=== PATIENT | male | born 1960 | race Caucasian/White ===

== ENCOUNTER 2020-04-18 12:32 | Inpatient (IN) | payer MEDICAID, SELFPAY ==
[~2020-04-18] VITALS: Ht 165.1 cm; Wt 65.3 kg
[2020-04-18 12:32] VITALS: BP 158/92
--- NOTE | 2020-04-18 12:32 | NUR ---
Bishop MCDUFFIE accompanied by Slim CASTANEDA, transferred to bed 10. RN evaluating patient at bedside.
--- NOTE | 2020-04-18 12:32 | NUR ---
(1225) RECEIVED FROM [facility] ON CPAP [id number] PLACED A BIPAP VISION (ALK 1124) PLUGGED INTO RED OUTLET TOLERATING WELL WITHOUT ADVERSE REACTIONS TO A MEDIUM FACIAL MASK SECURED WITH HEAD GEAR LOC AWAKE AND ALERT VERBALLY RESPONSIVE GOOD CHEST RISE AND AERATION THROUGHOUT BILATERAL LUNG LONG AIRWAY PATENT DALE/RN NOTIFIED OF BIPAP SETTINGS
[2020-04-18 12:34] VITALS: BP 136/104
--- NOTE | 2020-04-18 12:37 | NUR ---
Dr. Bobo is evaluating the patient at bedside.
--- NOTE | 2020-04-18 12:40 | NUR ---
PT BIBA FROM HOME FOR HYPOXIA AT 57% ON RA. PT PRESENTS WITH C-PAP WITH HIGHEST PAUSE OX 77%. PER EMS, PT WAS EXPOSURED TO POSITIVE COVID RECENTLY. PT CANNOT COMPLETE FULL SENTENCE AT THIS MOMENT AND IS AFEBRILE WITH NO COUGH UPON ARRIVAL. LUNGS ARE DIMINISHED ON GARY BASES. HEART RATE IS REGULAR WITH SINUS TACHYCARDIA. PMH: DENIES
--- NOTE | 2020-04-18 12:48 | NUR ---
RT IS AT BEDSIDE FOR ABG.
--- NOTE | 2020-04-18 12:50 | NUR ---
ABG OBTAINED RIGHT BRACHIAL PRESSURE APPLIED NO EVIDENCE OF TRAUMA
--- NOTE | 2020-04-18 12:58 | NUR ---
REVIEWED ABG SAMPLE REPORT NO NEW ORDERS
--- NOTE | 2020-04-18 13:02 | NUR ---
XRAY IS AT BEDSIDE.
[2020-04-18 13:47] LABS: BASOPHILS % (AUTO) 0.2 % (0.0-2.0); EOSINOPHILS % (AUTO) 0.2 % (0.0-4.0); HEMATOCRIT 36.3 % (36-52); HEMOGLOBIN 12.5 g/dL (12.0-18.0); LYMPHOCYTES # (AUTO) 0.4 K/uL (2.0-11.5); LYMPHOCYTES % (AUTO) 3.3 % (20.5-51.1); MEAN CORPUSCULAR HEMOGLOBIN 30 pg (27-31); MEAN CORPUSCULAR HGB CONC 34 g/dL (33-37); MEAN CORPUSCULAR VOLUME 87.7 fL (80-94); MONOCYTES # (AUTO) 0.6 K/uL (0.8-1.0); MONOCYTES % (AUTO) 5.7 % (1.7-9.3); NEUTROPHILS % (AUTO) 90.6 % (42.2-75.2); PLATELET COUNT (AUTO) 263 K/uL (140-450); RED BLOOD CELL COUNT(AUTO) 4.13 MIL/uL (4.20-6.10); RED CELL DISTRIBUTION WIDTH 13.6 % (11.6-13.7); WHITE BLOOD COUNT (AUTO) 11.1 K/uL (4.8-10.8)
[2020-04-18] MEDS ORDERED: AZITHROMYCIN 1,000 MG in DEXTROSE 5% 500 ML IV ONE (14:00)
[2020-04-18] MEDS ORDERED: DEXAMETHASONE 10 MG/ML VIAL IVP ONE (14:00)
[2020-04-18] MEDS ORDERED: ZINC SULF 220 MG CAP PO ONE (14:00)
[2020-04-18] MEDS ORDERED: AZTREONAM 1,000 MG VIAL ONE (14:01)
[2020-04-18] MEDS ORDERED: cefTRIAXone 1,000 MG VIAL ONE (14:04)
[2020-04-18] MEDS ORDERED: AZITHROMYCIN 500 MG INJ VIAL IV ONE (15:00)
[2020-04-18 15:05] LABS: ALBUMIN 1.6 g/dL (3.4-5.0); ANION GAP 21.4 (8-16); CARBON DIOXIDE 16.9 mmol/L (21-32); POTASSIUM 4.3 mmol/L (3.5-5.1); TOTAL BILIRUBIN 0.4 mg/dL (0.0-1.0)
--- NOTE | 2020-04-18 15:13 | NUR ---
SPOKE TO PT'S FRIEND KANDI AT PHONE NUMBER [phone] AND SHE STATES CAN PUT HER NAME AND PHONE NUMBER ON FILE EMERGENCY CONTACT.
[2020-04-18 15:24] LABS: FIBRINOGEN 500 mg/dL (200-400); PROTHROMBIN TIME 10.1 secs (10.8-13.4)
[2020-04-18] MEDS ORDERED: LORazepam 2 MG/ML VIAL IM/IVP PRN (15:25)
[2020-04-18] MEDS ORDERED: ACETAMINOPHEN 325 MG TAB PO PRN (15:25)
[2020-04-18] MEDS ORDERED: HYDROcodone/APAP 5/325 MG 1 TAB TAB PO PRN (15:25)
[2020-04-18] MEDS ORDERED: DOCUSATE SODIUM 100 MG GELCAP PO PRN (15:25)
[2020-04-18] MEDS ORDERED: ALBUTEROL HFA MDI 90 MCG/ACTUATION 8 GM INH PRN (15:25)
[2020-04-18] MEDS ORDERED: ZOLPIDEM 5 MG TAB PO PRN (15:25)
[2020-04-18] MEDS ORDERED: ONDANSETRON 4 MG/2 ML VIAL IVP PRN (15:25)
[2020-04-18 15:46] LABS: D-DIMER > 5000 ng/ml (0-400)
[2020-04-18] MEDS ORDERED: HEPARIN PER PHARMACY MC STA (15:49)
[2020-04-18] MEDS ORDERED: hePARIN / DEXT 5% PREMIX 250 ML IV ONE ×2 (15:50→16:55)
[2020-04-18 15:56] LABS: CHOL/HDL RATIO 4.4 (1-4.5); FREE T4 (FREE THYROXINE) 1.54 ng/dL (0.76-1.46); MAGNESIUM 2.2 mg/dL (1.8-2.4); PHOSPHORUS 4.2 mg/dL (2.5-4.9); THYROID STIMULATING HORMONE 2.18 uIU/mL (0.34-3.74)
--- NOTE | 2020-04-18 16:02 | NUR ---
NOVEL, CLEVE, FLU, AND RSV SWABS COLLECTED AND SENT TO THE LAB.
[2020-04-18] MEDS: NACL 0.9% 1,000 ML IV SCH (16:10)
[2020-04-18 16:40] LABS: RSV NEGATIVE (NEGATIVE)
[2020-04-18 16:44] LABS: C-REACTIVE PROTEIN QUANT 28.6 mg/dL (0.0-0.9)
[2020-04-18 16:57] LABS: LACTATE DEHYDROGENASE 235 U/L (85-227)
--- NOTE | 2020-04-18 17:00 | NUR ---
PT HAD BOWEL MOVEMENT AT BEDSIDE COMMODE.
[2020-04-18] MEDS ORDERED: DEXTROSE 50% 50 ML SYR IVP PRN (17:20)
--- NOTE | 2020-04-18 17:22 | NUR ---
PT'S PT IS 10.1. HEPARIN INITIAL BOLUS 4000 UNITS WAS GIVEN. INITIAL HEPARIN DRIP WAS CALCULATED 18 UNITS X 65KG/JE=4576 UNITS/HR. HEPARIN IS RUNNING AT 11ML/HR AT THIS TIME.
[2020-04-18] MEDS ORDERED: NACL 0.9% 1,000 ML IV SCH (17:40)
[2020-04-18] MEDS ORDERED: INSULIN REGULAR, HUMAN 100 UNIT in NACL 0.9% 100 ML IV SCH ×2 (17:40)
[2020-04-18] MEDS ORDERED: BLOOD GLUCOSE MONITORING 1 DEV DEV FS SCH ×2 (17:40→20:00)
[2020-04-18] MEDS ORDERED: DEXT 5% / NACL 0.45% 1,000 ML IV SCH (17:40)
--- NOTE | 2020-04-18 18:04 | NUR ---
Lactic Acid 2.3-- Critical value received from lab.
[2020-04-18 18:08] LABS: APPEARANCE,URINE CLEAR (CLEAR); BILIRUBIN,URINE NEGATIVE (NEGATIVE); BLOOD, URINE 2+ (NEGATIVE); COLOR,URINE YELLOW (YELLOW); LEUKOCYTE ESTERASE ,URINE NEGATIVE (NEGATIVE); NITRITE, URINE NEGATIVE (NEGATIVE); UGLUCOSE 2+ (NEGATIVE)
[2020-04-18 18:40] LABS: BARBITURATE, URINE NEGATIVE ng/ml (NEG <=200); BENZODIAZEPINE, URINE NEGATIVE ng/mL (NEG <=200); CANNABINOID, URINE NEGATIVE ng/mL (NEG <=50); COCAINE, URINE NEGATIVE ng/mL (NEG <=300); OPIATE, URINE NEGATIVE ng/mL (NEG <=2000); PHENCYCLIDINE SCREEN,URINE NEGATIVE ng/mL (NEG <=25)
[2020-04-18 18:41] LABS: WBC,URINE 0-5 /HPF (0-5)
--- NOTE | 2020-04-18 19:30 | NUR ---
RECEIVED REPORT FROM DALE GAGE FOR CONTINUITY OF CARE.
--- NOTE | 2020-04-18 20:00 | NUR ---
PT LAYING IN BED ON BiPAP AT 55% FIO2. O2 SAT AT 94% BREATHING EVEN AND MIDLY LABORED. WHEEZES TO BILAT BASES A&P. PT ACCIDENTLY PULLED HIS IV SITE. RE-ESTABLISGHED AND IV TO R FOREARM 20G SITE WAS PATENT FLUSHED WITH 10 ML OF NS. NO INFLITRATION, SWELLING OR DISCOMFORT NOTED. RE-CONNECTED HEPARIN ORDERED WITH 1100 UNITS/HR. CHANGED PT AND PLACED IN A CLEAN GOWN & CHANGED BED SHEETS. ADJUSTED HOB TO COMFORTABLE POSITION AND REPOSITION PT. BED WAS LOCKED AND PLACED IN LOWEST POSITION. NO C/O PAIN OR DISCOMFORT AT THIS TIME. ON CARDIAC MONITORING, BP MONITORING AND PULSE OXIMETRY.
[2020-04-18] MEDS: ZINC SULF 220 MG CAP PO SCH (20:56)
[2020-04-18 21:00] VITALS: BP 146/81
--- NOTE | 2020-04-18 21:15 | NUR ---
RECEIVED PHONE CALL FROM [facility] REGARDING PT'S ORDERS FOR CLARIFICATION. PAGED DR. PURVIS FOR CLARIFICATION AND GAVE NEW ORDERS FOR ACCUCHECK AND TO CALL BACK WITH RESULTS. DR. PURVIS GAVE ORDERS TO D/C NS AT 200 ML/HR AND TO CONTINUE CURRENT RATE AT 100 ML/HR. ORDERED ABG TO BE DONE. WILL FOLLOW UP WITH ORDERS.
[2020-04-18] MEDS: INSULIN LISPRO SLIDING SCALE 100 UNITS/ML VIAL SUBQ PRN (21:30)
--- NOTE | 2020-04-18 21:30 | NUR ---
ACCUCHECK AT THIS TIME 420. GAVE 12 UNITS OF LISPRO AND NOTIFIED DR. PURVIS. GAVE ORDERS TO D/C INSULIN DRIP AND TO CONTINUE ACCUCHECKS AND NOTIFY HER OF ACCUCHECK RESULT POST INSULIN ADMINISTRATION.
--- NOTE | 2020-04-18 22:40 | NUR ---
PT LAYING IN BED ON BiPAP AT 55% FIO2. BREATHING EVEN AND REGULAR. BED WAS LOCKED AND PLACED IN LOWEST POSITION. NO C/O PAIN OR DISCOMFORT AT THIS TIME. ON CARDIAC MONITORING, BP MONITORING AND PULSE OXIMETRY. EMPTIED PT'S URINAL WITH 200 ML OF DARK YELLOW URINE.
[2020-04-18] MEDS: BLOOD GLUCOSE MONITORING 1 DEV DEV FS SCH (23:00)
--- NOTE | 2020-04-18 23:17 | NUR ---
NOTIFIED DR. PURVIS OF [place] [id number] AND [facility] RESULTS. GAVE NEW ORDERS FOR VQ SCAN AND TO CONTINUE SLIDDING SCALE COVERAGE. Addendum: 04/19/20 at 0612 by JAYCEE *NO NEW ORDERS FOR ADDITIONAL INSULIN GIVEN.
[2020-04-18 23:43] LABS: PROTHROMBIN TIME 10.1 secs (10.8-13.4)
--- NOTE | 2020-04-19 00:05 | NUR ---
SPOKE WITH [facility]IOLOGY [facility] AND STATED THAT THEY CANNOT DO VQ SCAN HERE AND REQUIERES OUTSOURCE FROM A THIRD COMPANY. NOTIFIED DR. NARVAEZ NO NEW ORDERS AT THIS TIME.
--- NOTE | 2020-04-19 00:10 | NUR ---
DR. NARVAEZ GAVE TO FOR TROPONIN TO BE DRAWN AT 0500. ORDER PLACED. WILL FOLLOW UP WITH LAB.
[2020-04-19] MEDS ORDERED: hePARIN / DEXT 5% PREMIX 250 ML IV SCH (00:30)
[2020-04-19] MEDS ORDERED: HEPARIN PER PHARMACY MC PRN (00:30)
--- NOTE | 2020-04-19 00:38 | NUR ---
PT LAYING IN BED ON BiPAP AT 55% FIO2. BREATHING EVEN AND REGULAR. BED WAS LOCKED AND PLACED IN LOWEST POSITION. NO C/O PAIN OR DISCOMFORT AT THIS TIME. ON CARDIAC MONITORING, BP MONITORING AND PULSE OXIMETRY.
[2020-04-19 00:50] VITALS: BP 131/76
[2020-04-19] MEDS: NACL 0.9% 1,000 ML IV SCH ×3 (01:25→19:06)
--- NOTE | 2020-04-19 03:00 | NUR ---
PER RT INCREASED FIO2 % TO 60 UNABLE TO TITRATE TO 55% PER RT
--- NOTE | 2020-04-19 04:25 | NUR ---
PT LAYING IN BED ON BiPAP AT 60% FIO2. BREATHING EVEN AND REGULAR. BED WAS LOCKED AND PLACED IN LOWEST POSITION. NO C/O PAIN OR DISCOMFORT AT THIS TIME. ON CARDIAC MONITORING, BP MONITORING AND PULSE OXIMETRY.
--- NOTE | 2020-04-19 04:43 | NUR ---
LAB AT BEDSIDE FOR BLOOD DRAW.
--- NOTE | 2020-04-19 05:00 | NUR ---
PT WAS ASSISTED TO USE THE BATHROOM VIA BEDSIDE BEDPAN. TOLERATED WELL.
[2020-04-19 05:05] VITALS: BP 142/78
[2020-04-19 05:45] LABS: HEMOGLOBIN 11.4 g/dL (12.0-18.0); LYMPHOCYTES # (AUTO) 0.5 K/uL (2.0-11.5); MEAN CORPUSCULAR HEMOGLOBIN 30 pg (27-31); MEAN CORPUSCULAR HGB CONC 35 g/dL (33-37); MEAN CORPUSCULAR VOLUME 87.4 fL (80-94); MONOCYTES # (AUTO) 0.6 K/uL (0.8-1.0); MONOCYTES % (AUTO) 7.6 % (1.7-9.3); NEUTROPHILS # (AUTO) 6.6 K/uL (1.8-7.7); NEUTROPHILS % (AUTO) 86.4 % (42.2-75.2); PLATELET COUNT (AUTO) 236 K/uL (140-450); RED BLOOD CELL COUNT(AUTO) 3.78 MIL/uL (4.20-6.10); RED CELL DISTRIBUTION WIDTH 13.7 % (11.6-13.7); WHITE BLOOD COUNT (AUTO) 7.6 K/uL (4.8-10.8)
--- NOTE | 2020-04-19 07:07 | NUR ---
PT LAYING IN BED ON BiPAP AT 65% FIO2. BREATHING EVEN AND REGULAR. BED WAS LOCKED AND PLACED IN LOWEST POSITION. NO C/O PAIN OR DISCOMFORT AT THIS TIME. ON CARDIAC MONITORING, BP MONITORING AND PULSE OXIMETRY.
--- NOTE | 2020-04-19 07:26 | NUR ---
Received report from Gypsy Carter, transfer of care at this time.
--- NOTE | 2020-04-19 07:30 | NUR ---
GAVE REPORT TO KAYLIE GAGE FOR CONTINUITY OF CARE.
[2020-04-19 07:33] LABS: ALBUMIN 1.4 g/dL (3.4-5.0); ANION GAP 15.1 (8-16); CARBON DIOXIDE 19.2 mmol/L (21-32); CREATININE 1.9 mg/dL (0.6-1.3); MAGNESIUM 1.9 mg/dL (1.8-2.4); POTASSIUM 4.3 mmol/L (3.5-5.1); TOTAL BILIRUBIN 0.4 mg/dL (0.0-1.0)
[2020-04-19] MEDS: hePARIN / DEXT 5% PREMIX 250 ML IV SCH ×3 (07:43→15:46)
[2020-04-19] MEDS: BLOOD GLUCOSE MONITORING 1 DEV DEV FS SCH ×11 (07:47→22:23)
[2020-04-19] MEDS: INSULIN LISPRO SLIDING SCALE 100 UNITS/ML VIAL SUBQ PRN ×3 (07:53→18:16)
--- NOTE | 2020-04-19 07:54 | NUR ---
Pt blood sugar 397, insulin coverage of 10units humalog subq given, cosigned. Pt resting, no signs of respiratory distress at this time.
--- NOTE | 2020-04-19 08:18 | NUR ---
Spoke with Ian, gave report for pending admission room 112A.
[2020-04-19 09:00] VITALS: BP 133/80
[2020-04-19] MEDS ORDERED: ENOXAPARIN 30 MG/0.3 ML SYR SUBQ SCH (09:00)
--- NOTE | 2020-04-19 09:00 | NUR ---
RECEIVED PATIENT FROM ED NURSE KAYLIE. PATIENT SITTING UP IN BED AWAKE, ALERT, AND ORIENTED X4. RESP EVEN AND UNLABORED ON HUMIDIFIED NASAL CANULA AT 15L, O2SAT 90%. NO ACUTE DISTRESS AT THIS TIME. PATIENT DENIED OF PAIN. LUNGS CLEAR. BOWEL SOUNDS PRESENT. SKIN WARM TO TOUCH AND INTACT. RFA 20G NOTED INFUSING HEPARIN DRIP AT 1360 UNITS/HR. PATIENT COOPERATIVE DURING ADMISSION PROCESS. DROPLET PRECAUTION OBSERVED. SAFETY MEASURES IN PLACE. CALL LIGHT WITHIN REACH. WILL CONTINUE TO MONITOR.
--- NOTE | 2020-04-19 09:25 | NUR ---
Patient will be admitted to care of MOISÉS NARVAEZ MD. Admited to tele. Will go to room 112A. Belongings list completed. Report to TOO Sosa.
[2020-04-19] MEDS: ASCORBIC ACID 500 MG TAB PO SCH (09:31)
[2020-04-19] MEDS: ZINC SULF 220 MG CAP PO SCH ×2 (09:31→21:00)
[2020-04-19] MEDS: VITAMIN D 400 IU TAB PO SCH (09:31)
[2020-04-19] MEDS: AZITHROMYCIN 250 MG TAB PO SCH (09:31)
[2020-04-19 12:00] VITALS: BP 143/76
[2020-04-19] MEDS ORDERED: INSULIN LISPRO 100 UNITS/ML VIAL SUBQ SCH (13:20)
--- NOTE | 2020-04-19 13:34 | NUR ---
BLOOD GLUCOSE 467. DR NARVAZE IN HOUSE GAVE ORDER TO GIVE HUMALOG 12 UNITS SQ X1 NOW. ORDER CARRIED OUT. RESP EVEN AND UNLABORED ON HUMIDIFIED NC 15L. NO ACUTE S/S DISTRESS. CALL LIGHT WITHIN REACH. WILL CONTINUE TO MONITOR.
[2020-04-19] MEDS ORDERED: DEXTROSE 50% 50 ML SYR IVP PRN (13:45)
--- NOTE | 2020-04-19 14:16 | NUR ---
RECEIVED ORDER TO TRANSFER PATIENT TO ICU FOR DKA PROTOCOL. DIRECTOR OF PERIOPERATIVE SERVICES MADE AWARE.
[2020-04-19 14:42] LABS: BASOPHILS % (AUTO) 0.1 % (0.0-2.0); HEMATOCRIT 32.8 % (36-52); HEMOGLOBIN 11.4 g/dL (12.0-18.0); LYMPHOCYTES # (AUTO) 0.5 K/uL (2.0-11.5); MEAN CORPUSCULAR HEMOGLOBIN 30 pg (27-31); MEAN CORPUSCULAR HGB CONC 35 g/dL (33-37); MEAN CORPUSCULAR VOLUME 87.1 fL (80-94); MONOCYTES # (AUTO) 0.6 K/uL (0.8-1.0); MONOCYTES % (AUTO) 4.5 % (1.7-9.3); NEUTROPHILS # (AUTO) 11.9 K/uL (1.8-7.7); NEUTROPHILS % (AUTO) 91.4 % (42.2-75.2); PLATELET COUNT (AUTO) 287 K/uL (140-450); RED BLOOD CELL COUNT(AUTO) 3.77 MIL/uL (4.20-6.10); RED CELL DISTRIBUTION WIDTH 13.8 % (11.6-13.7)
[2020-04-19] MEDS ORDERED: LACTOBACILLUS RHAMNOSUS GG 1 EACH CAP PO SCH (14:57)
[2020-04-19 15:01] LABS: ALBUMIN 1.5 g/dL (3.4-5.0); ANION GAP 17.1 (8-16); CREATININE 1.8 mg/dL (0.6-1.3); MAGNESIUM 2.4 mg/dL (1.8-2.4); PHOSPHORUS 3.4 mg/dL (2.5-4.9); POTASSIUM 4.1 mmol/L (3.5-5.1); TOTAL BILIRUBIN 0.3 mg/dL (0.0-1.0)
[2020-04-19 16:00] VITALS: BP 141/82
--- NOTE | 2020-04-19 16:25 | NUR ---
2ND IV ACCESS INSERT TO LAC 22G USING ASEPTIC TECHNIQUE. INSULIN DRIP NOT IN PROGRESS DUE TO NO IV PUMP AVAILABLE. CERTIFIED ADAPTIVE PHYSICAL EDUCATOR MADE AWARE.
--- NOTE | 2020-04-19 16:40 | NUR ---
BLOOD GLUCOSE 411. RECEIVED ORDER FROM DR NARVAEZ TO FOLLOW SLIDING SCALE. 10 UNITS OF HUMALOG GIVEN. NO INSULIN DRIP AT THIS TIME.
--- NOTE | 2020-04-19 17:33 | NUR ---
PLACED PT BACK ON BIPAP DUE TO LOW SPO2. BIPAP SETTINGS 10/5, R14 AND FIO2 65%. BIPAP PLUGGED INTO A RED OUTLET WITH ALARMS ON AND FUNCTIONING. WILL CONTINUE TO MONITOR.
--- NOTE | 2020-04-19 17:35 | NUR ---
PATIENT PLACED ON BIPAP D/T UNABLE TO MAINTAIN O2SAT ABOVE 88% ON 15L HUMIDIFIED NC. PATIENT TOLERATING WELL, O2SAT MAINTAINED 93%. PATIENT AWAKE AND ALERT. ABLE TO FOLLOW COMMANDS. MAKE NEEDS KNOWN. DENIED OF PAIN. NO SECONDARY IV PUMP AT THIS TIME. UNABLE TO ADMINISTER ROCEPHIN OR INSULIN DRIP. ATHLETE MARKETING AGENT MADE AWARE. CALL LIGHT WITHIN REACH. WILL CONTINUE TO MONITOR.
--- NOTE | 2020-04-19 18:20 | NUR ---
BLOOD GLUCOSE 396, GIVE 10 UNITS OF HUMALOG PER DR NARVAEZ ORDER. PATIENT IN BED AWAKE AND ALERT. RESP EVEN AND UNLABORED ON BIPAP, O2SAT 93%. CALL LIGHT WITHIN REACH. WILL CONTINUE TO MONITOR.
--- NOTE | 2020-04-19 18:45 | NUR ---
SECONDARY IV PUMP BECAME AVAILABLE. ROCEPHIN GIVEN AT THIS TIME. ICU NURSE MADE AWARE OF NO INSULIN DRIP GIVEN.
[2020-04-19 18:49] LABS: ANION GAP 16.2 (8-16); CARBON DIOXIDE 21.7 mmol/L (21-32); CREATININE 1.7 mg/dL (0.6-1.3); POTASSIUM 3.9 mmol/L (3.5-5.1)
--- NOTE | 2020-04-19 19:10 | NUR ---
ENDORSED PATIENT TO NIGHT NURSE. PATIENT IN STABLE CONDITION.
--- NOTE | 2020-04-19 19:30 | NUR ---
RECEIVED PT ALERT, AWAKE, ABLE TO MAKE NEEDS KNOWN, SOPANISH SPEAKING ONLY, BIPAP IN PLACE /, O2 SAT 95, PATIENT CALM, HEPARIN DRIP IN PLACE ON RIGHT FOREARM GAUGE 20 RATE 1490, IVFLUID ON LEFT FOREARM CALL LIGHT WITHIN EASY REACH, NO C/O PAIN AT THIS TIME, SKIN WARM TO TOUCH RESP. EVEN AND UNLABORED, WILL START ON INSULIN DRIP.
[2020-04-19] MEDS: INSULIN REGULAR, HUMAN 100 UNIT in NACL 0.9% 100 ML IV SCH ×2 (21:01)
--- NOTE | 2020-04-19 22:35 | NUR ---
PATIENT EYES OPEN, CONTINUE ON BIPAP WELL TOLERATED, CHECK PT FREQUENTLY, INSULIN DRIP ON 3UNITS AT THIS TIME,WILL FOLLOW UP RESULT OF PTT.
[2020-04-19 22:46] LABS: ANION GAP 16.2 (8-16); CARBON DIOXIDE 20.6 mmol/L (21-32); CREATININE 1.6 mg/dL (0.6-1.3); POTASSIUM 3.8 mmol/L (3.5-5.1)
[2020-04-19 23:00] LABS: PROTHROMBIN TIME 10.3 secs (10.8-13.4)
[2020-04-20] VITALS (12 sets, daily range): BP systolic 109–156; BP diastolic 64–86
--- NOTE | 2020-04-20 00:32 | NUR ---
CALL PLACE TO LAB, SPOKE WITH ALMA WESLEY RESULT OF PTT,
--- NOTE | 2020-04-20 00:51 | NUR ---
TALKED TO JONATHAN IN THE LAB AND VERIFIED RESULT OF PTT, PER JONATHAN RESULT IS 34.5, I ASKED HER AGAIN AND SHE SAID SHE WILL REPEAT IT AND WILL CALL ME BACK, WILL CALL TO VERIFY LEVEL OF HEPARIN, SINCE RECEIVED 1490.
[2020-04-20 01:06] LABS: D-DIMER > 5000 ng/ml (0-400)
--- NOTE | 2020-04-20 01:10 | NUR ---
CALL PLACE TO [facility] TO VERIFY HEPARIN DRIP PER [facility] WE ARE NOT AFFILIATED WITH THEM ANYMORE SINCE MAR 31, REPORT TO DIANA SUP
[2020-04-20] MEDS: BLOOD GLUCOSE MONITORING 1 DEV DEV FS SCH ×23 (01:51→23:54)
[2020-04-20] MEDS: NACL 0.9% 1,000 ML IV SCH ×4 (01:51→21:36)
--- NOTE | 2020-04-20 01:53 | NUR ---
TALKED TO [facility] STAFF NAME SILVIA, EXPLAINED HEPARIN RATE RECEIVED WAS 1490, PER SILVIA CONTINUE AND JUST FOLLOW THE TITRATION BASE ON THE RESULT, PTT RESULT NOW IS 41.2
--- NOTE | 2020-04-20 02:03 | NUR ---
PATIENT EYES CLOSE, ON BIPAP WELL TOLERATED, INSULIN DRIP 2 UNITS , HEPARIN DRIP 16.2, IV SITE INTACT ,
[2020-04-20 02:12] LABS: ANION GAP 15.8 (8-16); CARBON DIOXIDE 20.2 mmol/L (21-32); CREATININE 1.5 mg/dL (0.6-1.3)
[2020-04-20 02:21] LABS: FIBRINOGEN 765 mg/dL (200-400)
--- NOTE | 2020-04-20 02:58 | NUR ---
RECHECK BLOOD SUGAR 244, STILL ON INSULIN DRIP 2 UNITS
--- NOTE | 2020-04-20 03:59 | NUR ---
BLOOD SUGAR 243, ON 2 UNITS INSULIN DRIP
--- NOTE | 2020-04-20 04:38 | NUR ---
PATIENT PLACED ON 100% NRB FOR TRANSPORT TO CT. VITAL SIGNS STABLE. TOO RODRIGUEZ AWARE. WILL CONT TO MONITOR
--- NOTE | 2020-04-20 05:23 | NUR ---
PATIENT BACK FROM CT, PER RT JUST LEAVE PT IN NON REBREATHER,
[2020-04-20] MEDS: hePARIN / DEXT 5% PREMIX 250 ML IV SCH ×2 (06:02→22:07)
--- NOTE | 2020-04-20 06:07 | NUR ---
PATIENT BS 225, SAME INSULIN RATE 2UNITS, PT ALERT, AWAKE, ORIENTED, ON NON REBREATHER AT 15 LITERS, O2 SAT 98
--- NOTE | 2020-04-20 07:45 | NUR ---
RECEIVED BEDSIDE REPORT FROM SENIOR ACCOUNT CLERK NURSE NAV FOR CONTINUITY OF CARE, PATIENT AWAKE AND RESTING ON BED, ABLE TO STATE HIS NAME AND BIRTHDAY, BIRTHDAY, ABLE TO FOLLOW COMMANDS, AND MAKE NEEDS KNOWN, SPEAK BULGARIAN, AND UNDERSTAND MINIMAL TRISTANIAN. RESPIRATION EVEN AND UNLABORED ON 15L NON-REBREATHER, SPO AT 91% AT THIS TIME. DENIED PAIN, SOB, AND NAUSEA, VOMITING. NO SIGNS OF ACUTE DISTRESS NOTED. IV ON RFA 20G, AND LFA 22G, RUNNING INSULIN DRIP AT 1 UNIT/HR AND HEPARIN DRIP AT 1,620 UNIT/HR. SKIN WARM TO TOUCH, CLEAN AND DRY. PATIENT IS ABLE TO USE URINAL AT BEDSIDE. PATIENT IS RESTING ON BED AT THIS TIME. SAFETY MEASURES IN PLACE. BED IN LOW POSITION, MELONIE LIGHT WITHIN REACH. ENHANCED DROPLET PRECAUTION IN PLACE. INTRODUCED SELF AND INSTRUCTED PATIENT TO USE THE CALL LIGHT FOR ANY ASSISTANCE, AND PATIENT NODDED.
--- NOTE | 2020-04-20 08:01 | NUR ---
PATIENT HAS BEEN SCREENED AND CATEGORIZED HIGH NUTRITION RISK. PATIENT WILL BE SEEN WITHIN 1-2 DAYS OF ADMISSION. 04/19/20 04/20/[address]
--- NOTE | 2020-04-20 08:59 | NUR ---
Q1 HOUR BLOOD GLUCOSE CHECKED, 181. CONTINUE INSULIN DRIP AT 1 UNIT/HR AT THIS TIME.
--- NOTE | 2020-04-20 09:05 | NUR ---
ADMINISTERED SCHEDULE MEDS PER MD ORDER, PATIENT TOLERATED MEDS WELL WITH WATER, MEDS EDUCATION PROVIDED, REINFORCEMENT NEEDED DUE TO LANGUAGE BARRIER, PATIENT AWAKE AND RESTING ON BED, 0N 15 L NON-REBREATHER, SPO2 AT 94%, DENIED PAIN, SOB, AND ANY DISTRESS. IV ON LFA 20G, RFA 22G, RUNNING HEPARIN DRIP AT 1,620 UNIT/HR AND INSULIN DRIP AT 1 UNIT/HR. SAFETY MEASURES IN PLACE. BED IN LOW POSITION, CALL LIGHT WITHIN REACH, BOARD UPDATED, INSTRUCTED PATIENT TO USE THE CALL LIGHT FOR ANY ASSISTANCE, AND PATIENT WAS AWARE.
[2020-04-20] MEDS: VITAMIN D 400 IU TAB PO SCH (09:06)
[2020-04-20] MEDS: LACTOBACILLUS RHAMNOSUS GG 1 EACH CAP PO SCH (09:06)
[2020-04-20] MEDS: ASCORBIC ACID 500 MG TAB PO SCH (09:07)
[2020-04-20] MEDS: AZITHROMYCIN 250 MG TAB PO SCH (09:07)
[2020-04-20] MEDS: ZINC SULF 220 MG CAP PO SCH ×2 (09:07→21:20)
--- NOTE | 2020-04-20 09:09 | NUR ---
DR ROSARIO IS ROUNDING ON PATIENT.
[2020-04-20] MEDS: DEXT 5% / NACL 0.9% 500 ML IV SCH ×6 (09:27→22:50)
--- NOTE | 2020-04-20 09:48 | NUR ---
04/20/20 RD INITIAL ASSESSMENT COMPLETED PLEASE REFER TO NUTRITION ASSESSMENT UNDER CARE ACTIVITY FOR ESTIMATED NUTRITIONAL NEEDS. 1. WHEN/IF MEDICALLY APPROPRIATE ADVANCE TO [facility] 60 GM DIET 2. DM DIET EDUCATION RECOMMENDED 3. RD TO FOLLOW-UP 2-3 DAYS, HIGH RISK KATHERINE JONAS, MARÍA
--- NOTE | 2020-04-20 10:45 | NUR ---
PTT 56.4, WITHIN THERAPEUTIC RANGE, NO CHANGE IN RATE PER PROTOCOL, WILL ORDER THE NEXT PTT DRAW IN NEXT 6 HOURS.
[2020-04-20 10:55] LABS: BASOPHILS % (AUTO) 0.1 % (0.0-2.0); HEMATOCRIT 34.5 % (36-52); HEMOGLOBIN 11.8 g/dL (12.0-18.0); LYMPHOCYTES # (AUTO) 0.6 K/uL (2.0-11.5); LYMPHOCYTES % (AUTO) 3.8 % (20.5-51.1); MEAN CORPUSCULAR HEMOGLOBIN 30 pg (27-31); MEAN CORPUSCULAR HGB CONC 34 g/dL (33-37); MEAN CORPUSCULAR VOLUME 88.2 fL (80-94); MONOCYTES # (AUTO) 0.7 K/uL (0.8-1.0); MONOCYTES % (AUTO) 4.5 % (1.7-9.3); NEUTROPHILS # (AUTO) 13.7 K/uL (1.8-7.7); NEUTROPHILS % (AUTO) 91.6 % (42.2-75.2); PLATELET COUNT (AUTO) 319 K/uL (140-450); RED BLOOD CELL COUNT(AUTO) 3.92 MIL/uL (4.20-6.10); RED CELL DISTRIBUTION WIDTH 14.1 % (11.6-13.7); WHITE BLOOD COUNT (AUTO) 14.9 K/uL (4.8-10.8)
[2020-04-20 11:15] LABS: ALBUMIN 1.6 g/dL (3.4-5.0); ANION GAP 14.7 (8-16); CREATININE 1.4 mg/dL (0.6-1.3); MAGNESIUM 1.8 mg/dL (1.8-2.4); PHOSPHORUS 3.8 mg/dL (2.5-4.9); POTASSIUM 3.7 mmol/L (3.5-5.1); TOTAL BILIRUBIN 0.3 mg/dL (0.0-1.0)
--- NOTE | 2020-04-20 11:26 | NUR ---
PATIENT HAS ONE MODERATE SOFT YELLOW BM, PROVIDED HYGIENE CARE, CHANGED ALL DIRTY LINENS, PATIENT TOLERATED WELL. PATIENT AWAKE AND WATCHING TV ON BED AT THIS TIME. DENIED PAIN, SOB, AND DISTRESS. SAFETY MEASURES IN PLACE. BED IN LOW POSITION, CALL LIGHT WITHIN REACH.
--- NOTE | 2020-04-20 12:21 | NUR ---
CRITICAL LAB BUN 74, CR 1.4, DR WEINBERG MADE AWARE, NO ORDER RECEIVED AT THIS TIME.
--- NOTE | 2020-04-20 14:46 | NUR ---
BLOOD GLUCOSE 304, INCREASED INSULIN DRIP TO 4 UNIT/HR PER RX PROTOCOL, CHANGED IVF TO NS AT 150 ML/HR.
--- NOTE | 2020-04-20 15:20 | NUR ---
APTT 65.1, WITHIN THERAPEUTIC RANGE, NO CHANGE IN RATE PER RX PROTOCOL. Addendum: 04/20/20 at 1524 by Patricia Scott RN 2ND RESULT WITHIN THERAPEUTIC RANGE, ORDERED PTT DRAW Q24, WILL BE DRAW TOMORROW 0600 AM.
[2020-04-20 18:24] LABS: MAGNESIUM 1.1 mg/dL (1.8-2.4); PHOSPHORUS 3.3 mg/dL (2.5-4.9)
--- NOTE | 2020-04-20 19:15 | NUR ---
RECEIVED PATIENT FROM AM SHIFT NURSE FOR CONTINUITY OF CARE. PATIENT IS ALERT AND ABLE TO MAKE NEEDS KNOWN. RESPIRATIONS TACHYPNEIC, LABORED UPON EXERTION. CONTINUES ON ON O2 15L VIA NRB, O2SAT 93%. SKIN WARM, DRY. IV SITE NOTED TO RIGHT FOREARM 20G PATENT/INTACT, INFUSING HEPARIN WELL. NO S/S BLEEDING NOTED. IV SITE TO LEFT FOREARM 22G PATENT/INTACT, INFUSING INSULIN WELL. ABDOMEN SOFT, NONTENDER, NONDISTENDED. BOWEL SOUNDS ACTIVE X4 QUADRANTS. PATIENT IS CONTINENT OF B/B. CONTINUES ON DKA PROTOCOL. PLAN OF CARE DISCUSSED. ISOLATION PRECAUTIONS IN PLACE. CALL LIGHT WITHIN REACH.
[2020-04-20 20:20] LABS: ANION GAP 15.8 (8-16); CARBON DIOXIDE 20.3 mmol/L (21-32); CREATININE 1.3 mg/dL (0.6-1.3); POTASSIUM 4.1 mmol/L (3.5-5.1)
[2020-04-20] MEDS: INSULIN REGULAR, HUMAN 100 UNIT in NACL 0.9% 100 ML IV SCH ×4 (20:55→22:54)
[2020-04-20 23:24] LABS: ANION GAP 15.2 (8-16); CARBON DIOXIDE 21.7 mmol/L (21-32); CREATININE 1.3 mg/dL (0.6-1.3); POTASSIUM 3.9 mmol/L (3.5-5.1)
[2020-04-21] VITALS (24 sets, daily range): BP systolic 134–180; BP diastolic 67–92
[2020-04-21] MEDS: INSULIN REGULAR, HUMAN 100 UNIT in NACL 0.9% 100 ML IV SCH ×8 (00:04→23:00)
[2020-04-21] MEDS: DEXT 5% / NACL 0.9% 500 ML IV SCH ×4 (00:10→07:40)
[2020-04-21] MEDS: BLOOD GLUCOSE MONITORING 1 DEV DEV FS SCH ×23 (00:54→22:44)
[2020-04-21] MEDS: NACL 0.9% 1,000 ML IV SCH ×3 (04:16→17:36)
[2020-04-21 04:34] LABS: ANION GAP 16.2 (8-16); CREATININE 1.2 mg/dL (0.6-1.3); POTASSIUM 4.2 mmol/L (3.5-5.1)
--- NOTE | 2020-04-21 07:15 | NUR ---
ENDORSED TO AM SHIFT NURSE FOR CONTINUITY OF CARE.
[2020-04-21 07:58] LABS: ANION GAP 15.5 (8-16); CARBON DIOXIDE 20.1 mmol/L (21-32); CREATININE 1.1 mg/dL (0.6-1.3); POTASSIUM 3.6 mmol/L (3.5-5.1)
--- NOTE | 2020-04-21 08:10 | NUR ---
BLOOD GLUCOSE 164, INSULIN DRIP CONTINUE AT 1 UNIT/HR, IVF D5NS AT 200 ML/HR. PATIENT IS ON 15 LPM NON-REBREATHER, DESATURATING TO 80%, REPOSITIONED PATIENT TO HIGH WEEKS, RELOCATE PULSE OXYGEN SITE, REMAINS SETTING AT 81~83, SHALLOW AND LABORED BREATHING NOTED, FELICITA TOVAR NOTIFIED. PATIENT AWAKE AND WATCHING TV AT THIS TIME, DENIED PAIN, NAUSEA, ANY DIZZIESS. SAFETY MEASURES IN PLACE. BED IN LOW POSITION, CALL LIGHT WITHIN REACH. INSTRUCTED PATIENT TO USE THE CALL LIGHT AND PATIENT WAS AWARE.
[2020-04-21] MEDS: VITAMIN D 400 IU TAB PO SCH (09:32)
[2020-04-21] MEDS: AZITHROMYCIN 250 MG TAB PO SCH (09:32)
[2020-04-21] MEDS: ASCORBIC ACID 500 MG TAB PO SCH (09:32)
[2020-04-21] MEDS: LACTOBACILLUS RHAMNOSUS GG 1 EACH CAP PO SCH (09:32)
[2020-04-21] MEDS: ZINC SULF 220 MG CAP PO SCH ×2 (09:32→20:23)
[2020-04-21 09:35] LABS: BASOPHILS % (AUTO) 0.2 % (0.0-2.0); HEMATOCRIT 34.3 % (36-52); HEMOGLOBIN 11.5 g/dL (12.0-18.0); LYMPHOCYTES # (AUTO) 0.4 K/uL (2.0-11.5); LYMPHOCYTES % (AUTO) 3.6 % (20.5-51.1); MEAN CORPUSCULAR HEMOGLOBIN 30 pg (27-31); MEAN CORPUSCULAR HGB CONC 34 g/dL (33-37); MEAN CORPUSCULAR VOLUME 88.7 fL (80-94); MONOCYTES # (AUTO) 0.4 K/uL (0.8-1.0); MONOCYTES % (AUTO) 3.1 % (1.7-9.3); NEUTROPHILS # (AUTO) 11.2 K/uL (1.8-7.7); NEUTROPHILS % (AUTO) 93.1 % (42.2-75.2); PLATELET COUNT (AUTO) 296 K/uL (140-450); RED BLOOD CELL COUNT(AUTO) 3.86 MIL/uL (4.20-6.10); RED CELL DISTRIBUTION WIDTH 13.8 % (11.6-13.7)
--- NOTE | 2020-04-21 09:38 | NUR ---
ADMINISTERED SCHEDULE AM MEDS PER MD ORDER, SET PATIENT UP ON HIGH WEEKS, PATIENT TOLERATED MEDS WELL WITH WATER, MEDS EDUCATION PROVIDED, REINFORCEMENT NEEDED DUE TO LANGUAGE BARRIER, PATIENT AWAKE AND WATCHING TV ON BED, 0N BIPAP, SPO2 AT 93%, DENIED PAIN, NAUSEA, DIZZINESS. IV RUNNING HEPARIN DRIP AT 1,620 UNIT/HR AND INSULIN DRIP AT 1 UNIT/HR. SAFETY MEASURES IN PLACE. BED IN LOW POSITION, CALL LIGHT WITHIN REACH, BED ALARM ACTIVATED. URINAL WITHIN REACH. INSTRUCTED PATIENT TO USE THE CALL LIGHT FOR ANY ASSISTANCE, AND PATIENT WAS AWARE
--- NOTE | 2020-04-21 10:14 | NUR ---
APTT 66.5, WITHIN THERAPEUTIC RANGE, NO CHANGE IN RATE PER RX PROTOCOL, ORDER PTT DRAW THE NEXT 24 HOUR, TOMORROW 0600 AM.
--- NOTE | 2020-04-21 11:00 | NUR ---
ATTENDED TO PATIENT'S CALL LIGHT, PATIENT REQUESTS FOR BED AGGARWAL, ASSISTED PATIENT TO USE THE BED AGGARWAL, NO SIGNS OF ACUTE DISTRESS NOTED AT THIS TIME. SAFETY MEASURES IN PLACE.
--- NOTE | 2020-04-21 11:43 | NUR ---
PATIENT HAS A MODERATE YELLOW LIQUID DIARRHEA, PROVIDED HYGIENE CARE, SPONGE BATH, CHANGED ALL DIRTY. PATIENT IS RESTING AND WATCHING TV ON BED. NO SIGNS OF ACUTE DISTRESS NOTED. TELE MONITOR IN PLACE. SAFETY MEASURES IN PLACE.
[2020-04-21] MEDS: hePARIN / DEXT 5% PREMIX 250 ML IV SCH (13:55)
[2020-04-21 14:33] LABS: ANION GAP 17.3 (8-16); CARBON DIOXIDE 18.6 mmol/L (21-32); CREATININE 1.3 mg/dL (0.6-1.3); POTASSIUM 3.9 mmol/L (3.5-5.1)
[2020-04-21] MEDS: DEXT 5% / NACL 0.9% 1,000 ML IV SCH ×2 (15:55→22:00)
--- NOTE | 2020-04-21 17:03 | NUR ---
BLOOD GLUCOSE 240, CONTINUE RUNNING 2 UNIT/HR. PATIENT IS AWAKE AND WATCHING TV ON BED. BIPAP IS ON, SPO2 AT 98% AT THIS TIME. NO SIGNS OF ACUTE DISTRESS NOTED. TELE MONITOR IN PLACE. SAFETY MEASURES IN PLACE.
[2020-04-21 19:43] LABS: ANION GAP 14.7 (8-16); CARBON DIOXIDE 20.3 mmol/L (21-32)
--- NOTE | 2020-04-21 19:43 | NUR ---
ENDORSED PATIENT TO ECOMMERCE MERCHANDISING MANAGER NURSE FOR CONTINUITY OF CARE. PATIENT IS IN STABLE CONDITION.
--- NOTE | 2020-04-21 19:45 | NUR ---
RECEIVED REPORT FROM DAYSGREGORYFT RN. PATIENT ON BIPAP, FIO2 75%, IPAP 10, EPAP 5, 24 RR. PATIENT ALERT AND ORIENTED X4, PERSON, PLACE, TIME AND EVENT, BULGARIAN SPEAKING. PATIENT IN BED LOCKED AND LOWERED IN A SFE POSITION, HEAD OF BED MAINTAINED AT 30 DEGREES. PATIENT ON CONTINUOUS CARDIAC TELE MONITOR, NORMAL SINUS RHYTHM. PATIENT SKIN SIGNS NORMAL, WARM AND DRY. PATIENT HAS LEFT FOREARM AND RIGHT FOREARM PERIPHERAL IV ACCESS. PATIENT ON IV DRIPS INSULIN 2, HEPARIN 1620 UNITS, AND D5/NS. BLOOD GLUCOSE CHECKS Q1 THROUGHOUT SHIFT. PATIENT ASSISTED WITH MEDICATIONS, HYGIENE, TOILETING AND OTHER DAILY ACTIVITIES.
[2020-04-21 23:11] LABS: CARBON DIOXIDE 20.8 mmol/L (21-32); CREATININE 1.1 mg/dL (0.6-1.3); POTASSIUM 3.8 mmol/L (3.5-5.1)
[2020-04-22] VITALS (22 sets, daily range): BP systolic 130–195; BP diastolic 68–92
--- NOTE | 2020-04-22 | NUR ---
ACCUCHECK BLOOD GLUCOSE CHECKS Q1, FREQUENT ROUNDING AND MONITORING.
[2020-04-22] MEDS: BLOOD GLUCOSE MONITORING 1 DEV DEV FS SCH ×16 (00:04→20:41)
[2020-04-22] MEDS: NACL 0.9% 1,000 ML IV SCH ×4 (00:16→22:00)
[2020-04-22 03:58] LABS: BASOPHILS % (AUTO) 0.1 % (0.0-2.0); EOSINOPHILS % (AUTO) 0.4 % (0.0-4.0); HEMATOCRIT 35.2 % (36-52); HEMOGLOBIN 11.8 g/dL (12.0-18.0); LYMPHOCYTES # (AUTO) 0.3 K/uL (2.0-11.5); LYMPHOCYTES % (AUTO) 2.8 % (20.5-51.1); MEAN CORPUSCULAR HEMOGLOBIN 30 pg (27-31); MEAN CORPUSCULAR HGB CONC 34 g/dL (33-37); MEAN CORPUSCULAR VOLUME 87.8 fL (80-94); MONOCYTES # (AUTO) 0.2 K/uL (0.8-1.0); MONOCYTES % (AUTO) 1.7 % (1.7-9.3); PLATELET COUNT (AUTO) 307 K/uL (140-450); RED BLOOD CELL COUNT(AUTO) 4.01 MIL/uL (4.20-6.10); RED CELL DISTRIBUTION WIDTH 13.7 % (11.6-13.7); WHITE BLOOD COUNT (AUTO) 11.5 K/uL (4.8-10.8)
[2020-04-22 04:18] LABS: ANION GAP 17.1 (8-16); CARBON DIOXIDE 20.4 mmol/L (21-32); CREATININE 1.1 mg/dL (0.6-1.3); POTASSIUM 3.5 mmol/L (3.5-5.1)
[2020-04-22 04:22] LABS: MAGNESIUM 1.2 mg/dL (1.8-2.4); PHOSPHORUS 2.7 mg/dL (2.5-4.9)
--- NOTE | 2020-04-22 05:00 | NUR ---
FREQUENT MONITORING/ROUNDING, SPONGE BATH GIVEN, ASSISTED WITH HYGIENE, BED MAINTAINED LOWERED AND LOCKED IN A SAFE POSITION.
--- NOTE | 2020-04-22 06:00 | NUR ---
ASSISTED TO USE BEDPAN, 1 BM, 1 ML.
[2020-04-22] MEDS: DEXT 5% / NACL 0.9% 1,000 ML IV SCH ×3 (06:06→12:03)
[2020-04-22] MEDS: hePARIN / DEXT 5% PREMIX 250 ML IV SCH (06:19)
--- NOTE | 2020-04-22 07:00 | NUR ---
ACCUCHECKS Q1, THROUGHOUT SHIFT.
--- NOTE | 2020-04-22 07:47 | NUR ---
SBAR HANDOFF REPORT AND TRANSFER OF CARE GIVEN TO DAYSHIFT NURSE.
[2020-04-22] MEDS: ASCORBIC ACID 500 MG TAB PO SCH (09:24)
[2020-04-22] MEDS: AZITHROMYCIN 250 MG TAB PO SCH (09:24)
[2020-04-22] MEDS: LACTOBACILLUS RHAMNOSUS GG 1 EACH CAP PO SCH (09:24)
[2020-04-22] MEDS: DEXAMETHASONE 4 MG TAB PO SCH (09:25)
[2020-04-22] MEDS: ZINC SULF 220 MG CAP PO SCH ×2 (09:25→20:18)
[2020-04-22] MEDS: VITAMIN D 400 IU TAB PO SCH (09:26)
[2020-04-22] MEDS ORDERED: MAG SULF 2000 MG/WATER PREMIX 50 ML IV SCH (11:00)
[2020-04-22] MEDS ORDERED: DEXTROSE 50% 50 ML SYR IVP PRN (14:10)
[2020-04-22] MEDS: INSULIN LANTUS 100 UNITS/ML 10 ML VIAL SUBQ SCH (14:50)
--- NOTE | 2020-04-22 14:51 | NUR ---
SCHEDULED MEDICATIONS DUE GIVEN. HEPARIN DRIP AND INSULIN DRIP STOPPED PER MD ORDERS. WILL CONTINUE TO MONITOR.
--- NOTE | 2020-04-22 16:59 | NUR ---
SCHEDULED MEDICATIONS DUE GIVEN. WILL CONTINUE TO MONITOR.
[2020-04-22] MEDS: INSULIN LISPRO SLIDING SCALE 100 UNITS/ML VIAL SUBQ PRN (20:41)
[2020-04-22] MEDS: MORPHINE SULFATE 2 MG/ML SYR IVP PRN (20:56)
[2020-04-23] VITALS (11 sets, daily range): BP systolic 148–185; BP diastolic 69–100
--- NOTE | 2020-04-23 01:15 | NUR ---
VISIBLE CHEST RISE AND FALL. BREATHING IS SLIGHTLY TACHYPNEIC, RESPIRATIONS 23-27. NONREBREATHER IN PLACE. 15L. NO DISTRESS NOTED. SAFETY MEASURES IN PLACE.
[2020-04-23] MEDS: NACL 0.9% 1,000 ML IV SCH ×4 (02:56→16:16)
--- NOTE | 2020-04-23 03:45 | NUR ---
PT ASKING FOR BEDPAN. UNABLE TO PASS STOOL, ONLY VOIDED. ASSISTED WITH SPONGE BATH AND REPOSITIONING. PT WITH SOME WEAKNESS, NEEDS ASSISTANCE. URINAL AT BEDSIDE. NO COMPLAINTS OF PAIN AT THIS TIME. ALL VITALS WITHIN RANGE, BP ELEVATED BUT WITHIN PARAMETERS. WILL CONTINUE TO MONITOR.
--- NOTE | 2020-04-23 07:30 | NUR ---
ZAC HANDOFF REPORT AND TRANSFEER OF CARE GIVEN TO [facility] YOUNG DUQUE. Addendum: 04/24/20 at 0742 by Pal Aiken RN RN CARE TRANSFERRED ON 04/24/2020 @ 4738.
--- NOTE | 2020-04-23 07:30 | NUR ---
PT. RECEIVED IN BED COVID ISOLATION AND PENDING PCR.CARE ASSURED.LABORED BREATHING NOTED WHILE ON NRM @ 15LPM/100% FIO2, SATTING 92%.NSR/ST ON THE MONITOR.FULL LIQ NOTED FOR DIET.SKIN WARM AND DRY.B/P ELEVATED AND PRN HYDRALAZINE FOR HIGH B/P.NEEDS ARE BEING MET.
[2020-04-23] MEDS: BLOOD GLUCOSE MONITORING 1 DEV DEV FS SCH ×4 (07:57→21:44)
[2020-04-23] MEDS: AZITHROMYCIN 250 MG TAB PO SCH (09:00)
[2020-04-23 11:14] LABS: BASOPHILS % (AUTO) 0.1 % (0.0-2.0); EOSINOPHILS # (AUTO) 0.1 K/uL (0-0.4); EOSINOPHILS % (AUTO) 0.7 % (0.0-4.0); HEMATOCRIT 32.6 % (36-52); HEMOGLOBIN 11.1 g/dL (12.0-18.0); LYMPHOCYTES # (AUTO) 0.3 K/uL (2.0-11.5); MEAN CORPUSCULAR HEMOGLOBIN 30 pg (27-31); MEAN CORPUSCULAR HGB CONC 34 g/dL (33-37); MEAN CORPUSCULAR VOLUME 87.8 fL (80-94); MONOCYTES # (AUTO) 0.2 K/uL (0.8-1.0); MONOCYTES % (AUTO) 1.7 % (1.7-9.3); NEUTROPHILS # (AUTO) 12.1 K/uL (1.8-7.7); NEUTROPHILS % (AUTO) 95.5 % (42.2-75.2); PLATELET COUNT (AUTO) 255 K/uL (140-450); RED BLOOD CELL COUNT(AUTO) 3.71 MIL/uL (4.20-6.10); WHITE BLOOD COUNT (AUTO) 12.7 K/uL (4.8-10.8)
[2020-04-23] MEDS: DEXAMETHASONE 4 MG TAB PO SCH (11:18)
[2020-04-23] MEDS: LACTOBACILLUS RHAMNOSUS GG 1 EACH CAP PO SCH (11:18)
[2020-04-23] MEDS: VITAMIN D 400 IU TAB PO SCH (11:18)
[2020-04-23] MEDS: MAGNESIUM OXIDE 400 MG TAB PO SCH (11:19)
[2020-04-23] MEDS: ZINC SULF 220 MG CAP PO SCH ×2 (11:23→21:17)
[2020-04-23 11:48] LABS: ALBUMIN 1.3 g/dL (3.4-5.0); ANION GAP 15.8 (8-16); CARBON DIOXIDE 21.7 mmol/L (21-32); POTASSIUM 3.5 mmol/L (3.5-5.1); TOTAL BILIRUBIN 0.4 mg/dL (0.0-1.0)
[2020-04-23] MEDS: hydrALAZINE 20 MG/ML VIAL IVP PRN ×2 (12:08→17:30)
[2020-04-23] MEDS: INSULIN LANTUS 100 UNITS/ML 10 ML VIAL SUBQ SCH (12:39)
--- NOTE | 2020-04-23 13:21 | NUR ---
*ST: Bedside Swallow Evaluation* Pt is 59 yo M CRISS from home 04/18/2020 c/o SOB & chest tightness x4 days. Pt was on BiPAP while in transit to ER. Pt reported cough, chills, decreased appetite, and mild diarrhea. Pt was transferred to ICU level of care 04/19 for DKA protocol. PMHx ?DM. CT Chest 04/20 - extensive diffuse bilat airspace consolidation and ground-glass appearance suggesting extensive atypical PNA, COVID-10 should be considered. Cleared with RN, Enrique, for BDSE. Per BASEBALL PLAYER, Pt on Liquids Diet at this time. Per other ICU RNs who have had the Pt before, Pt has been using BiPAP and 100% NRB intermittently 2/2 desaturations. Pt seen bedside, on COVID-19 PUI isolation precautions, alert, on 15L 100% NRB mask, O2 sats ~88-92% with episodes of saturation to 82-84% when off mask for periods of time. Noted increased WOB. ~2oz ice chips, ~2oz apple sauce, ~1oz MS canned pears, ~1oz thin apple juice by cup, and ~1oz nectar thick apple juice by tsp trialed on-and-off NRB mask. Initially, Pt fed self but noted some weakness with FORECAST ANALYST assisting in providing POs while Pt held the NRB mask. Breaks provided in between PO's for Pt to have slower rate of breathing. Pt stripped 100% of bolus from tsp, had difficulty sipping thin from cup (noted expelling air at times 2/2 increased respiratory rate), start-stop mastication of MS canned pears, no residue, no overt coughing nor throat clearing with POs given. Pt consistently asked for ice chips and apple sauce and generally declined further PO trials of thin juice and MS canned pears. When asked if it was easier to ingest apple sauce, ice chips and nectar thick apple juice, Pt nodded his head. When asked if it was difficult to ingest MS canned pears and thin apple juice, Pt nodded his head. Plan of care d/w pt and pts RN. P: Rec Puree/[place] Thick Liquids by tsp, okay for ice chips Rec 1:1 feeding assistance on-and-off NRB mask Nsg to monitor and notify FORECAST ANALYST of acute changes in status -[place] Frank MA, [facility]-FORECAST ANALYST Addendum: 04/23/20 at [address] Amended: Links added.
--- NOTE | 2020-04-23 15:02 | NUR ---
04/23/20 RD FOLLOW UP COMPLETED. PLEASE REFER TO NUTRITION ASSESSMENT UNDER CARE ACTIVITY FOR ESTIMATED NUTRITIONAL NEEDS. 1. CONTINUE 60 GM CCHO DIET 2. ADD RESTRICTIONS OF PUREE, NECTAR THICK LIQUIDS TO CURRENT RESTRICTIONS 3. DM DIET EDUCATION RECOMMENDED 4. RD TO FOLLOW-UP 2-3 DAYS, HIGH RISK MARGARET PEDERSON, RD
--- NOTE | 2020-04-23 15:30 | NUR ---
PT IN BED ALERT AND RESTLESS @ TIMES.PCR CAME BACK POSITION, PT CONTINUES IN ISOLATION.PASSED SWALLOW EVAL.PT ON PUREE DIET WITH NECTAR THICKEN,TOLERATING WELL W/O COUGHING.DYSPNEA NOTED WITH EATING AND MOVEMENT.UPDATED FAMILY VIA CHAIN MAKER MACHINE.ALL NEEDS ARE BEING MET.
[2020-04-23] MEDS: ASCORBIC ACID 500 MG TAB PO SCH (17:33)
--- NOTE | 2020-04-23 17:54 | NUR ---
Covid results received from lab. Results = POSITIVE. Hard copy requested from lab and placed in infection controls mailbox.
[2020-04-23] MEDS: INSULIN LISPRO SLIDING SCALE 100 UNITS/ML VIAL SUBQ PRN ×2 (18:35→21:54)
[2020-04-23] MEDS: MORPHINE SULFATE 2 MG/ML SYR IVP PRN (18:40)
--- NOTE | 2020-04-23 19:30 | NUR ---
SBAR HANDOFF AND REPORT RECEIVED FROM DAYSHIFT NURSEYOUNG.
--- NOTE | 2020-04-23 19:45 | NUR ---
BLOOD GLUCOSE 211 VIA ACCUCHECK.
--- NOTE | 2020-04-23 21:00 | NUR ---
HYGIENE AND DAILY ACTIVITIES ASSISTED PATIENT.
[2020-04-24] VITALS (14 sets, daily range): BP systolic 140–172; BP diastolic 62–96
--- NOTE | 2020-04-24 | NUR ---
FREQUENT ROUNDING AND MONITORING ON PATIENT, NO COMPLAINTS OF PAIN AND NO DISCOMFORT, TOLERATING WELL WITH NONREBREATHER AT 15L HIGH FLOW.
--- NOTE | 2020-04-24 04:00 | NUR ---
FREQUENT MONITORING AND ROUNDING, PATIENT CALM AND WITHOUT PAIN, TOLERATING NONREBREATHER @ 15L HIGH FLOW WELL.
[2020-04-24 07:14] LABS: HEMATOCRIT 32.4 % (36-52); HEMOGLOBIN 10.9 g/dL (12.0-18.0); MEAN CORPUSCULAR HEMOGLOBIN 30 pg (27-31); MEAN CORPUSCULAR HGB CONC 34 g/dL (33-37); MEAN CORPUSCULAR VOLUME 87.6 fL (80-94); PLATELET COUNT (AUTO) 276 K/uL (140-450); WHITE BLOOD COUNT (AUTO) 13.5 K/uL (4.8-10.8)
--- NOTE | 2020-04-24 07:30 | NUR ---
PT. RECEIVED IN BED ALERT AND ORIENTED*4.CARE ASSURED.NO ACUTE DISTRESS.NO SOB NOTED,ON 15L VIA NRM, SATTING 95%.ST ON THE MONITOR.ACTIVE BOWELSS. NO DIARRHEA REPORT RECENTLY.SKIN WARM AND DRY TO TOUCH.VOIDS VIA URINAL.B/P ELEVATED BUT STABLE.AFEBRILE.ISOLATION FOR COVID MAINTAINED.
[2020-04-24 07:34] LABS: ANION GAP 13.5 (8-16); CARBON DIOXIDE 23.2 mmol/L (21-32); POTASSIUM 3.7 mmol/L (3.5-5.1)
--- NOTE | 2020-04-24 07:42 | NUR ---
SBAR HANDOFF REPORT AND TRANSFER OF CARE GIVEN TO ONCOMING DAYSHIFT NURSE, YOUNG.
[2020-04-24] MEDS: NACL 0.9% 1,000 ML IV SCH ×2 (08:30→12:16)
[2020-04-24 08:52] LABS: LYMPHOCYTES % (MANUAL) 3 % (20-46); MONOCYTES % (MANUAL) 4 % (5-12)
[2020-04-24] MEDS ORDERED: METOPROLOL 25 MG TAB PO SCH (09:25)
[2020-04-24] MEDS: VITAMIN D 400 IU TAB PO SCH (10:14)
[2020-04-24] MEDS: DEXAMETHASONE 4 MG TAB PO SCH (10:14)
[2020-04-24] MEDS: LACTOBACILLUS RHAMNOSUS GG 1 EACH CAP PO SCH (10:15)
[2020-04-24] MEDS: ZINC SULF 220 MG CAP PO SCH ×2 (10:15→21:16)
[2020-04-24] MEDS: ASCORBIC ACID 500 MG TAB PO SCH (10:15)
[2020-04-24] MEDS: MAGNESIUM OXIDE 400 MG TAB PO SCH (10:16)
[2020-04-24] MEDS: INSULIN LANTUS 100 UNITS/ML 10 ML VIAL SUBQ SCH (10:24)
[2020-04-24] MEDS: BLOOD GLUCOSE MONITORING 1 DEV DEV FS SCH ×3 (11:30→21:39)
[2020-04-24] MEDS: INSULIN LISPRO SLIDING SCALE 100 UNITS/ML VIAL SUBQ PRN ×3 (11:52→22:03)
--- NOTE | 2020-04-24 11:53 | NUR ---
BLOOD GLUCOSE 176, 2 UNIT HUMALOG SUBQ GIVEN. PATIENT IS ON NON-REBREATHER, SPO2 AT 94%. AWAKE, ALERT AND WATCHING TV ON BED AT THIS TIME. SAFETY MEASURES IN PLACE.
[2020-04-24] MEDS: METOPROLOL 25 MG TAB PO SCH (14:21)
--- NOTE | 2020-04-24 15:56 | NUR ---
ONCE TIME DOSE REMDESIVIR ADMINISTERED PER MD ORDER. CHECKED BLOOD GLUCOSE 182, 2 UNIT HUMALOG GIVEN VIA SUBQ. PATIENT IS NAPPING ON BED AND AROUSABLE TO VOICE. ON NON-REBREATHER, EVEN AND UNLABORED CHEST RISES NOTED, SPO2 AT 91% AT THIS TIME. NO SIGNS OF ACUTE DISTRESS NOTED. SAFETY MEASURES IN PLACE.
[2020-04-24] MEDS ORDERED: REMDESIVIR (EUA) 200 MG in NACL 0.9% 100 ML IV SCH (17:00)
[2020-04-24] MEDS ORDERED: remdesivir CLINICAL MONITORING 1 EA MISC MC PRN (17:00)
--- NOTE | 2020-04-24 17:07 | NUR ---
PT RESTING QUIETLY IN BED.LOADING DOSE OF REMDESEVIR GIVEN W/O ANY ADVERSE EFFECT.VSS.AFEBRILE.UPDATE PROVIDED TO PT'S FAMILY.NEEDS ARE BEING MET.CALL LIGHT WITHIN PT'S REACH.
--- NOTE | 2020-04-24 19:30 | NUR ---
SBAR HANDOFF RECEIVED FROM DAYSHIFT NURSEYOUNG.
--- NOTE | 2020-04-24 19:45 | NUR ---
PATIENT FOUND ON NONREBREATHER 15L HIGH FLOW OXYGEN, TOLERATING WELL. LAYING SEMI-FOWLERS IN THE BED COMFORTABLY, NO COMPLAINTS OF PAIN. PATIENT ABLE TO USE URINAL AT BEDSIDE. IV ACCESS INCLUDES RIGHT FOREARM AND LEFT FOREARM PERIPHERAL IV'S. IV DRIPS INCLUDE NS @ 150 ML/HR. PATIENT ABLE TO MOVE IN BED/ADJUST POSITION WITH ASSISTANCE. EDUCATED PATIENT ON IMPORTANCE OF KEEPING NONREBREATHER MASK PROPERLY SECURED TO FACE TO PREVENT DESATURATION EVENTS. PATIENT BED LOCKED AND LOWERED IN A POSITION OF SAFETY, CALL LIGHT LEFT WITH PATIENT AND INSTRUCTED ON HOW TO PROPERLY USE. PATIENT ROOM CLOSE TO NURSING STATION FOR SAFETY AND FREQUENT ROUNDING.
--- NOTE | 2020-04-24 21:00 | NUR ---
BLOOD GLUCOSE 204 WITH ACCUCHECK, PROTOCOL INITIATED.
--- NOTE | 2020-04-24 21:00 | NUR ---
FREQUENT ROUNDING, CONTINUOUS CARDIAC MONITORING, SINUS RHYTHM, NO COMPLAINTS OF PAIN, RESTING IN BED, CALMLY.
[2020-04-25] VITALS (25 sets, daily range): BP systolic 74–196; BP diastolic 46–106
--- NOTE | 2020-04-25 | NUR ---
FREQUENT ROUNDING, CONTINUOUS MONITORING, NORMAL SINUS RHYTHM. ASSISTED WITH DAILY HYGIENE AND TOILETING.
[2020-04-25] MEDS: NACL 0.9% 1,000 ML IV SCH ×5 (00:48→21:50)
--- NOTE | 2020-04-25 03:00 | NUR ---
ASSISTED WITH HYGIENE, TOILETING, DAILY CARE. ROUNDED ON FREQUENTLY, MONITORED CLOSELY. TOLERATING NONREBREATHER 15L WELL, RESTING COMFORTABLY AND CALMLY IN BED. NO COMPLAINTS OF PAIN OR DISCOMFORT.
[2020-04-25 06:12] LABS: HEMATOCRIT 36.1 % (36-52); HEMOGLOBIN 12.2 g/dL (12.0-18.0); LYMPHOCYTES # (AUTO) 0.2 K/uL (2.0-11.5); LYMPHOCYTES % (AUTO) 2.1 % (20.5-51.1); MEAN CORPUSCULAR HEMOGLOBIN 30 pg (27-31); MEAN CORPUSCULAR HGB CONC 34 g/dL (33-37); MONOCYTES # (AUTO) 0.4 K/uL (0.8-1.0); MONOCYTES % (AUTO) 3.4 % (1.7-9.3); NEUTROPHILS # (AUTO) 10.3 K/uL (1.8-7.7); NEUTROPHILS % (AUTO) 94.5 % (42.2-75.2); PLATELET COUNT (AUTO) 273 K/uL (140-450); RED BLOOD CELL COUNT(AUTO) 4.06 MIL/uL (4.20-6.10); WHITE BLOOD COUNT (AUTO) 10.9 K/uL (4.8-10.8)
[2020-04-25 06:51] LABS: ANION GAP 14.1 (8-16); CARBON DIOXIDE 26.6 mmol/L (21-32); POTASSIUM 3.7 mmol/L (3.5-5.1)
[2020-04-25 07:06] LABS: ALBUMIN 1.5 g/dL (3.4-5.0); BILIRUBIN,DIRECT 0.1 mg/dL (0.0-0.3); TOTAL BILIRUBIN 0.3 mg/dL (0.0-1.0)
[2020-04-25] MEDS: BLOOD GLUCOSE MONITORING 1 DEV DEV FS SCH ×4 (07:30→21:00)
--- NOTE | 2020-04-25 07:30 | NUR ---
SBAR HANDOFF REPORT AND TRANSFER OF CARE GIVEN TO RECEIVING DAYSHIFT NURSEYOMI.
--- NOTE | 2020-04-25 08:00 | NUR ---
RECEIVED BEDSIDE REPORT FROM WINDSHIELD WIPER REPAIRER NURSE, PT IS SLEEPING, LUNGS SOUND: DIMINISHED/CRACKLES UPON AUSCULTATION, 15 L HIGH FLOW, SATURATING @ 92%. S1S2 NOTED UPON AUSCULTATION, PT HAS RT FA PERIPHERAL IV 22g RUNNING NS 0.9% @ 150 ML/HR. LT FA 20g SALINE LOCK. BOWEL SOUNDS ACTIVE IN ALL 4 QUADRANTS. SKIN WARM, DRY, AND INTACT. SAFETY MEASURES IN PLACE, BED LOW AND LOCKED, SIDE RAILS UP, CALL LIGHT WITHIN REACH, WILL CONTINUE TO MONITOR.
[2020-04-25] MEDS: COMMUNICATION ORDER MC SCH (08:20)
[2020-04-25] MEDS: INSULIN LANTUS 100 UNITS/ML 10 ML VIAL SUBQ SCH (09:54)
[2020-04-25] MEDS: ASCORBIC ACID 500 MG TAB PO SCH (09:56)
[2020-04-25] MEDS: ZINC SULF 220 MG CAP PO SCH ×2 (09:56→21:00)
[2020-04-25] MEDS: MAGNESIUM OXIDE 400 MG TAB PO SCH (09:56)
[2020-04-25] MEDS: METOPROLOL 25 MG TAB PO SCH ×2 (09:57→21:00)
[2020-04-25] MEDS: DEXAMETHASONE 4 MG TAB PO SCH (09:57)
[2020-04-25] MEDS: VITAMIN D 400 IU TAB PO SCH (09:58)
[2020-04-25] MEDS: LACTOBACILLUS RHAMNOSUS GG 1 EACH CAP PO SCH (09:58)
[2020-04-25] MEDS ORDERED: PROPOFOL 1000 MG/100 ML PREMIX 100 ML IV ONE (10:46)
[2020-04-25] MEDS: PROPOFOL 1000 MG/100 ML PREMIX 100 ML IV PRN ×4 (10:50→22:54)
--- NOTE | 2020-04-25 10:50 | NUR ---
PT FOUND WITH HIGH FLOW NRB MASK OFF, PT UNCONSCIOUS, NOT AROUSABLE TO VOICE. CODE BLUE INITIATED.
--- NOTE | 2020-04-25 10:51 | NUR ---
AT 10:51, 20MG ETOMIDATE GIVEN. AT 10:52, 100MG SUCCINYLCHOLINE GIVEN.
--- NOTE | 2020-04-25 10:55 | NUR ---
PT INTUBATED BY ER PHYSICIAN. ETT 8.0 SECURED @24 TEETH/GUM. ETT SECURED WITH ANCHOR FAST DEVICE. CO2 COLOR CHANGE ADEQUATE WITH BILATERAL BREATH SOUNDS. CXR TO BE ORDERED.
[2020-04-25] MEDS ORDERED: SUCCINYLCHOLINE CHLORIDE 200 MG/10 ML VIAL IVP ONE (11:45)
--- NOTE | 2020-04-25 11:46 | NUR ---
PT FOUND EXTUBATED, STARTED RESCUE BREATHS WITH THE AMBU BAG AND CALLED CODE BLUE. AT 11:47, 20MG ETOMIDATE GIVEN. AT 11:48, 100 MG SUCCINYLCHOLINE GIVEN. 11:49, 1 ATROPINE GIVEN.
--- NOTE | 2020-04-25 12:39 | NUR ---
SOCIAL WORK NOTE: Patient's Orientation Unable To Assess Information Provided By KANDI VALLE - ROOMMATE Comments SW WAS UNABLE TO MEET PATIENT AT BEDSIDE DUE TO MEDICAL CONDITION. SW COMPLETED ASSESSMENT WITH PATIENT'S ROOMMATE. PER KANDI, PATIENT'S SON LIVES IN [place].` Operating Manager, Realtionship and Phone Number KANDI VALLE FRIEND' [phone] Healthcare Power of Purification Director No Does Patient Have a POLST No Identifying Problems No Social Work Triggers Is A Social Work Consult Needed No Mandate Report Filed No Explanation Of Identifying Problems PATIENT IS A 59-YEAR-OLD MALE ADMITTED FOR HYPOXIA AND R/O COVID. PATIENT HAS NO PERTINENT PMHX. ROOMMATE STATED THAT PATIENT HAS NO HISTORY OF MENTAL HEALTH OR SUBSTANCE ABUSE. Admitted From Home Pre-Admission Level Of Functioning Status Independent/Ambulatory Prior Resources/Services Used In Last 12 Months No Prior Resources Used Prior DME No Prior DME Used Living Situation Lives With Family Rents A Room Other Living Situation/Comment PATIENT LIVES WITH KANDI VALLE. Patient Had Caregiver No Home Support No Caregiver Issues Financial Issues No Known Financial Issue Referral To The Financial Counselor Needed No Factors/Needs No D/C Needs Identified Pt/Rep Participated In Discharge Plan Yes Patient/Family Agress With Discharge Plan Yes Discharge Plan Comments TENTATIVE DISCHARGE PLAN IS FOR PATIENT TO RETURN HOME. DC Plan Status Initiated
--- NOTE | 2020-04-25 14:00 | NUR ---
DR DENNIS ON UNIT. PER DR DENNIS, ADMINISTER A MORPHINE DRIP.
[2020-04-25] MEDS: MORPHINE SULFATE 50 MG in NACL 0.9% 45 ML IV PRN (14:56)
--- NOTE | 2020-04-25 15:07 | NUR ---
04/25/20 RD FOLLOW UP COMPLETED PLEASE REFER TO NUTRITION ASSESSMENT UNDER CARE ACTIVITY FOR ESTIMATED NUTRITIONAL NEEDS. 1. RECOMMEND GLUCERNA 1.2 @ 55 ML/HR X 24 HR, START AT 10 ML ADVANCE 10 ML Q6H --THIS WILL PROVIDE 1584 KCAL AND 79 G PROTEIN MEETING 97% OF ESTIMATED KCAL NEEDS AND 80% OF ESTIMATED PROTEIN NEEDS 2. RECOMMEND FREE WATER FLUSH [address] TO FOLLOW-UP 2-3 DAYS, HIGH RISK KATHERINE JONAS, MARÍA
--- NOTE | 2020-04-25 15:17 | NUR ---
PAGED DR DENNIS, ABOUT PT AGITATED, PULLING OFF GOWN. PER DR DENNIS, GIVE 20MG (2ML) BOLUS IVP OF PROPOFOL AND INCREASE PTS PROPOFOL FROM 45MCG/KG/MIN TO 50MCG/KG/MIN.
--- NOTE | 2020-04-25 16:00 | NUR ---
NO S/S OF DISTRESS NOTED, ROUTINE CARE GIVEN. SAFETY MEASURES IN PLACE. WILL CONT. TO MONITOR.
[2020-04-25] MEDS: INSULIN LISPRO SLIDING SCALE 100 UNITS/ML VIAL SUBQ PRN ×2 (16:51→23:29)
[2020-04-25] MEDS: REMDESIVIR (EUA) 100 MG in NACL 0.9% 100 ML IV SCH (17:47)
--- NOTE | 2020-04-25 18:00 | NUR ---
PTs CONDITION REMAINS UNCHANGED. WILL CONT TO MONITOR
--- NOTE | 2020-04-25 20:00 | NUR ---
RECEIVED REPORT FROM DAY SHIFT RN. PT ETT TO VENT. A/C PC FIO2 80%, RATE 18, PEEP 8. RESPIRATION EVEN AND UNLABORED. CHEST EXPANSION SYMMETRICAL. ORAL MUCOSA PINK AND MOIST. SKIN WARM, DRY AND INTACT. PERIPHERAL ACCESSES ON THE LEFT HAND 18G, RIGHT FA 20G. PT ON PROPOFOL @ 50MCG/KG/MIN, MORPHINE @ 2MG/HR, NS @ 150MLS/HR. OGT IN PLACE CLAMPED. ENRIQUEZ CATHETER IN PLACE DRAINING TO GRAVITY. PROPAGATION MANAGER AT BEDSIDE. BED IN LOWEST POSITION. SIDE RAILS UP. ISOLATION PRECAUTION MAINTAINED. WILL CONTINUE TO MONITOR.
[2020-04-26] VITALS (25 sets, daily range): BP systolic 80–106; BP diastolic 45–57
--- NOTE | 2020-04-26 | NUR ---
PT CONDITION REMAINS UNCHANGED. WILL CONTINUE TO MONITOR.
[2020-04-26] MEDS: PROPOFOL 1000 MG/100 ML PREMIX 100 ML IV PRN ×3 (04:00→21:55)
--- NOTE | 2020-04-26 04:00 | NUR ---
MORNING CARE PROVIDED. TURNED AND REPOSITIONED. PRESSURE AREAS OFF LOADED. WILL CONTINUE TO MONITOR.
[2020-04-26] MEDS: NACL 0.9% 1,000 ML IV SCH ×3 (04:41→17:59)
--- NOTE | 2020-04-26 05:11 | NUR ---
No change in condition in relation to respiratory system. parameters left unchanged
[2020-04-26 06:29] LABS: HEMATOCRIT 29.8 % (36-52); LYMPHOCYTES # (AUTO) 0.2 K/uL (2.0-11.5); LYMPHOCYTES % (AUTO) 1.3 % (20.5-51.1); MEAN CORPUSCULAR HEMOGLOBIN 30 pg (27-31); MEAN CORPUSCULAR HGB CONC 33 g/dL (33-37); MEAN CORPUSCULAR VOLUME 90.3 fL (80-94); MONOCYTES # (AUTO) 0.5 K/uL (0.8-1.0); MONOCYTES % (AUTO) 3.1 % (1.7-9.3); NEUTROPHILS # (AUTO) 14.1 K/uL (1.8-7.7); NEUTROPHILS % (AUTO) 95.6 % (42.2-75.2); PLATELET COUNT (AUTO) 168 K/uL (140-450); RED CELL DISTRIBUTION WIDTH 14.3 % (11.6-13.7); WHITE BLOOD COUNT (AUTO) 14.8 K/uL (4.8-10.8)
[2020-04-26] MEDS: BLOOD GLUCOSE MONITORING 1 DEV DEV FS SCH ×4 (07:30→21:00)
--- NOTE | 2020-04-26 07:30 | NUR ---
ENDORSED PT TO DAY SHIFT RN FOR CONTINUITY OF CARE.
[2020-04-26 07:48] LABS: ANION GAP 11.8 (8-16); CARBON DIOXIDE 25.8 mmol/L (21-32); CREATININE 1.8 mg/dL (0.6-1.3); POTASSIUM 4.6 mmol/L (3.5-5.1)
[2020-04-26 07:49] LABS: ALBUMIN 1.2 g/dL (3.4-5.0); BILIRUBIN,DIRECT 0.1 mg/dL (0.0-0.3); TOTAL BILIRUBIN 0.2 mg/dL (0.0-1.0)
[2020-04-26] MEDS: COMMUNICATION ORDER MC SCH (09:00)
[2020-04-26] MEDS: MAGNESIUM OXIDE 400 MG TAB PO SCH (09:00)
[2020-04-26] MEDS: INSULIN LANTUS 100 UNITS/ML 10 ML VIAL SUBQ SCH (09:00)
[2020-04-26] MEDS: METOPROLOL 25 MG TAB PO SCH ×2 (09:00→21:00)
[2020-04-26] MEDS: ZINC SULF 220 MG CAP PO SCH ×2 (10:38→21:00)
[2020-04-26] MEDS: DEXAMETHASONE 4 MG TAB PO SCH (10:38)
[2020-04-26] MEDS: VITAMIN D 400 IU TAB PO SCH (10:38)
[2020-04-26] MEDS: LACTOBACILLUS RHAMNOSUS GG 1 EACH CAP PO SCH (10:38)
[2020-04-26] MEDS: ASCORBIC ACID 500 MG TAB PO SCH (10:39)
--- NOTE | 2020-04-26 10:43 | NUR ---
SCHEDULED MEDICATIONS DUE GIVEN. WILL CONTINUE TO MONITOR.
[2020-04-26] MEDS ORDERED: CRUSHER, PILL MC ONE (10:48)
[2020-04-26] MEDS: MORPHINE SULFATE 50 MG in NACL 0.9% 45 ML IV PRN (11:02)
[2020-04-26] MEDS ORDERED: LOVENOX 1MG/KG Q24H SUBQ ONE (12:15)
[2020-04-26] MEDS ORDERED: ENOXAPARIN 80 MG/0.8 ML SYR SUBQ SCH (13:30)
--- NOTE | 2020-04-26 14:32 | NUR ---
ENOXAPARIN NOT GIVEN AT THIS TIME BECAUSE GAVE HEPARIN 5,000 UNITS SUBQ EARLIER TODAY. WILL CONTINUE TO MONITOR.
[2020-04-26] MEDS: REMDESIVIR (EUA) 100 MG in NACL 0.9% 100 ML IV SCH (17:23)
[2020-04-26] MEDS: INSULIN LISPRO SLIDING SCALE 100 UNITS/ML VIAL SUBQ PRN (17:23)
--- NOTE | 2020-04-26 17:24 | NUR ---
SCHEDULED MEDICATIONS DUE GIVEN. WILL CONTINUE TO MONITOR.
--- NOTE | 2020-04-26 19:40 | NUR ---
GAVE REPORT TO WEB OPERATIONS ADMINISTRATOR NURSE FOR CONTINUITY OF CARE. PATIENT IN STABLE CONDITION.
[2020-04-27] VITALS (27 sets, daily range): BP systolic 83–140; BP diastolic 44–100
[2020-04-27] MEDS: NACL 0.9% 1,000 ML IV SCH ×4 (00:16→20:16)
[2020-04-27 06:21] LABS: BASOPHILS # (AUTO) 0.1 K/uL (0.00-0.22); BASOPHILS % (AUTO) 0.4 % (0.0-2.0); HEMATOCRIT 47.4 % (36-52); HEMOGLOBIN 15.2 g/dL (12.0-18.0); LYMPHOCYTES # (AUTO) 0.2 K/uL (2.0-11.5); LYMPHOCYTES % (AUTO) 1.7 % (20.5-51.1); MEAN CORPUSCULAR HEMOGLOBIN 30 pg (27-31); MEAN CORPUSCULAR HGB CONC 32 g/dL (33-37); MEAN CORPUSCULAR VOLUME 92.8 fL (80-94); MONOCYTES # (AUTO) 0.2 K/uL (0.8-1.0); MONOCYTES % (AUTO) 1.7 % (1.7-9.3); NEUTROPHILS # (AUTO) 12.1 K/uL (1.8-7.7); NEUTROPHILS % (AUTO) 96.2 % (42.2-75.2); PLATELET COUNT (AUTO) 125 K/uL (140-450); RED BLOOD CELL COUNT(AUTO) 5.11 MIL/uL (4.20-6.10); RED CELL DISTRIBUTION WIDTH 14.6 % (11.6-13.7); WHITE BLOOD COUNT (AUTO) 12.6 K/uL (4.8-10.8)
[2020-04-27 06:48] LABS: ANION GAP 14.8 (8-16); CARBON DIOXIDE 24.9 mmol/L (21-32); CREATININE 3.7 mg/dL (0.6-1.3); POTASSIUM 5.7 mmol/L (3.5-5.1)
[2020-04-27 06:50] LABS: ALBUMIN 1.2 g/dL (3.4-5.0); BILIRUBIN,DIRECT 0.2 mg/dL (0.0-0.3); TOTAL BILIRUBIN 0.2 mg/dL (0.0-1.0)
[2020-04-27] MEDS: BLOOD GLUCOSE MONITORING 1 DEV DEV FS SCH ×4 (06:56→21:40)
[2020-04-27] MEDS: NOREPINEPHRINE 8 MG in DEXTROSE 5% 250 ML IV PRN (07:00)
--- NOTE | 2020-04-27 07:25 | NUR ---
HANDOFF RECEIVED FROM PEDIATRIC ANESTHESIOLOGIST RN. PT IS SEDATED RASS -3. PT IS ETT TO VENT, ACPC MODE, WITH FIO2 60 %, R 18, PEEP 8. PT HAS ACCESS AT [facility] PIC, L H 18 G, R FA 20G. PROPOFOL IS RUNNING AT 20 MCG/K/MIN, MOPRHINE AT 2 MG/HR, AND LEVOPHED AT 4 MCG/MIN, NS IS RUNNING AT 150 ML/HR. PT IS SR AT THIS TIME. PT HAS OG TUBE WITH GLUCERNA GOAL RATE OF 55 ML/HR WITH FWF 160 ML Q4HR. PT HAS ENRIQUEZ CATHETER IN PLACE. HOB 30 DEG, BED IN LOW LOCKED POSITION.
[2020-04-27] MEDS: COMMUNICATION ORDER MC SCH (08:25)
[2020-04-27] MEDS: MAGNESIUM OXIDE 400 MG TAB PO SCH (08:26)
[2020-04-27] MEDS: LACTOBACILLUS RHAMNOSUS GG 1 EACH CAP PO SCH (08:26)
[2020-04-27] MEDS: ASCORBIC ACID 500 MG TAB PO SCH (08:27)
[2020-04-27] MEDS: DEXAMETHASONE 4 MG TAB PO SCH (08:27)
[2020-04-27] MEDS: METOPROLOL 25 MG TAB PO SCH (08:27)
[2020-04-27] MEDS: ZINC SULF 220 MG CAP PO SCH ×2 (08:31→21:40)
[2020-04-27] MEDS: ENOXAPARIN 80 MG/0.8 ML SYR SUBQ SCH (08:31)
[2020-04-27] MEDS: VITAMIN D 400 IU TAB PO SCH (08:32)
--- NOTE | 2020-04-27 08:37 | NUR ---
DR. MANZANO PAGED REGARDING CRITICAL LAB VALUES
[2020-04-27] MEDS: INSULIN LANTUS 100 UNITS/ML 10 ML VIAL SUBQ SCH (08:43)
[2020-04-27] MEDS ORDERED: LOVENOX 1MG/KG Q24H SUBQ SCH (09:00)
[2020-04-27] MEDS ORDERED: SODIUM ZIRCONIUM CYCLOSILICATE 10 GM POWD.PACK PO SCH (11:00)
[2020-04-27] MEDS: MORPHINE SULFATE 50 MG in NACL 0.9% 45 ML IV PRN (11:00)
[2020-04-27] MEDS: INSULIN LISPRO SLIDING SCALE 100 UNITS/ML VIAL SUBQ PRN ×3 (11:50→21:42)
--- NOTE | 2020-04-27 18:15 | NUR ---
PER BLOOD BANK, OUT OF O TYPE CONVALESCENT PLASMA AT THIS TIME. DR. HOLDER AWARE
--- NOTE | 2020-04-27 19:15 | NUR ---
HANDOFF GIVEN TO WATER TREATMENT OPERATOR RN FOR CONTINUITY OF CARE
[2020-04-27] MEDS: PROPOFOL 1000 MG/100 ML PREMIX 100 ML IV PRN (21:41)
[2020-04-28] VITALS (24 sets, daily range): BP systolic 85–143; BP diastolic 36–69
[2020-04-28] MEDS: NACL 0.9% 1,000 ML IV SCH ×3 (02:56→16:16)
[2020-04-28 06:13] LABS: BASOPHILS # (AUTO) 0.1 K/uL (0.00-0.22); BASOPHILS % (AUTO) 0.6 % (0.0-2.0); HEMATOCRIT 34.1 % (36-52); HEMOGLOBIN 10.9 g/dL (12.0-18.0); LYMPHOCYTES # (AUTO) 0.3 K/uL (2.0-11.5); LYMPHOCYTES % (AUTO) 1.7 % (20.5-51.1); MEAN CORPUSCULAR HEMOGLOBIN 30 pg (27-31); MEAN CORPUSCULAR HGB CONC 32 g/dL (33-37); MEAN CORPUSCULAR VOLUME 93.9 fL (80-94); MONOCYTES # (AUTO) 0.5 K/uL (0.8-1.0); MONOCYTES % (AUTO) 2.9 % (1.7-9.3); NEUTROPHILS # (AUTO) 15.2 K/uL (1.8-7.7); NEUTROPHILS % (AUTO) 94.8 % (42.2-75.2); PLATELET COUNT (AUTO) 156 K/uL (140-450); RED BLOOD CELL COUNT(AUTO) 3.64 MIL/uL (4.20-6.10); RED CELL DISTRIBUTION WIDTH 15.1 % (11.6-13.7); WHITE BLOOD COUNT (AUTO) 16.1 K/uL (4.8-10.8)
[2020-04-28] MEDS: BLOOD GLUCOSE MONITORING 1 DEV DEV FS SCH ×3 (06:34→16:30)
[2020-04-28] MEDS: INSULIN LISPRO SLIDING SCALE 100 UNITS/ML VIAL SUBQ PRN ×3 (06:38→17:34)
[2020-04-28 06:41] LABS: ANION GAP 16.9 (8-16); CARBON DIOXIDE 23.1 mmol/L (21-32)
[2020-04-28 06:47] LABS: ALBUMIN 1.1 g/dL (3.4-5.0); BILIRUBIN,DIRECT 0.1 mg/dL (0.0-0.3); TOTAL BILIRUBIN 0.3 mg/dL (0.0-1.0)
--- NOTE | 2020-04-28 07:10 | NUR ---
HANDOFF RECEIVED FROM MANAGER MOUNTAIN RN. PT IS SEDATED RASS -3. PT IS ETT TO VENT, ACPC MODE, WITH FIO2 60 %, R 18, PEEP 8. PT HAS ACCESS AT [facility] PICC, L H 18 G, R FA 20G. PROPOFOL IS RUNNING AT 5 MCG/K/MIN, MORPHINE AT 1 MG/HR, AND LEVOPHED AT 8 MCG/MIN, NS IS RUNNING AT 150 ML/HR. PT IS SR AT THIS TIME. PT HAS OG TUBE WITH GLUCERNA GOAL RATE OF 55 ML/HR WITH FWF 160 ML Q4HR. PT HAS ENRIQUEZ CATHETER IN PLACE. HOB 30 DEG, BED IN LOW LOCKED POSITION.
[2020-04-28 07:26] LABS: CREATININE 5.7 mg/dL (0.6-1.3)
--- NOTE | 2020-04-28 07:31 | NUR ---
DR. LONGORIA CALLED FOR HD DIALYSIS PLACEMENT. WILL TRY TO COME BY THIS AFTERNOON.
[2020-04-28] MEDS ORDERED: NOREPINEPHRINE 4 MG/4 ML VIAL IV ONE (08:45)
[2020-04-28] MEDS: NOREPINEPHRINE 8 MG in DEXTROSE 5% 250 ML IV PRN (08:53)
[2020-04-28] MEDS: ZINC SULF 220 MG CAP PO SCH (09:00)
[2020-04-28] MEDS: MAGNESIUM OXIDE 400 MG TAB PO SCH (09:00)
[2020-04-28] MEDS: DEXAMETHASONE 4 MG TAB PO SCH (09:00)
[2020-04-28] MEDS: INSULIN LANTUS 100 UNITS/ML 10 ML VIAL SUBQ SCH (09:00)
[2020-04-28] MEDS: LACTOBACILLUS RHAMNOSUS GG 1 EACH CAP PO SCH (09:00)
[2020-04-28] MEDS: VITAMIN D 400 IU TAB PO SCH (09:00)
[2020-04-28] MEDS: ASCORBIC ACID 500 MG TAB PO SCH (09:00)
[2020-04-28] MEDS: COMMUNICATION ORDER MC SCH (09:00)
[2020-04-28] MEDS: ENOXAPARIN 80 MG/0.8 ML SYR SUBQ SCH (09:00)
[2020-04-28] MEDS ORDERED: INSULIN REGULAR, HUMAN 100 UNIT/ML VIAL IVP SCH (10:00)
[2020-04-28] MEDS ORDERED: SODIUM ZIRCONIUM CYCLOSILICATE 10 GM POWD.PACK PO SCH ×2 (10:00→12:45)
[2020-04-28] MEDS ORDERED: DEXTROSE 50% 50 ML SYR IVP SCH (10:00)
[2020-04-28] MEDS ORDERED: SODIUM BICARBONATE 8.4% PFS 50 MEQ/50 ML SYR IVP SCH (10:00)
--- NOTE | 2020-04-28 12:45 | NUR ---
PT DESATTING, INCREASED FIO2 TO 75%. RT LILI AWARE. PT NOW SATTING 94%
--- NOTE | 2020-04-28 14:49 | NUR ---
DR. DENNIS AT BEDSIDE. ADJUSTED PEEP TO 10. VENT SETTINGS NOW FIO2 75%, PEEP 10, R 18.
--- NOTE | 2020-04-28 15:45 | NUR ---
DR. LONGORIA AT BEDSIDE TO PLACE LYNDON CATHETER FOR HD.
--- NOTE | 2020-04-28 19:10 | NUR ---
HANDOFF GIVEN TO THERMAL ENGINEER RN FOR CONTINUITY OF CARE
--- NOTE | 2020-04-28 21:23 | NUR ---
CODE BLUE INITIATED; ROSC ACHIEVED, SEE CODE SHEET FOR DETAILS. 0: 2ND CODE BLUE; PT BRADYCARDIC; PEA; ROSC ACHIEVED; SEE CODE SHEET FOR DETAILS. 5: KAZ CALLED 5X MESSAGES LEFT ;KANDI VALLE [phone]. 2333: 3RD CODE CALLED; ROSC; SEE CODE SHEET FOR DETAILS 0035: CHARLES GAMBLE CALLED, PT 0039, DR. JOY PRONOUNCED PT EXPIRATION.
== END 2020-04-29 13:30 | DRG 720 ==
LOC: MED 12:32 → EDBD 12:32 → MTU 15:28 → MMU 04-20 07:01
PROVIDERS: ADMIT Family Medicine; ATTEND Family Medicine
PROC: 5A09357 Assistance with Respiratory Ventilation, Less than 24 Consecutive Hours, Continuous Positive Airway Pressure (ICD-10-PCS; 2020-04-18)
PROC: 5A09357 Assistance with Respiratory Ventilation, Less than 24 Consecutive Hours, Continuous Positive Airway Pressure (ICD-10-PCS; 2020-04-19)
PROC: 5A09357 Assistance with Respiratory Ventilation, Less than 24 Consecutive Hours, Continuous Positive Airway Pressure (ICD-10-PCS; 2020-04-21)
PROC: XW033E5 Introduction of Remdesivir Anti-infective into Peripheral Vein, Percutaneous Approach, New Technology Group 5 (ICD-10-PCS; 2020-04-24)
PROC: 5A1945Z Respiratory Ventilation, 24-96 Consecutive Hours (ICD-10-PCS; principal; 2020-04-25)
PROC: 0BH17EZ Insertion of Endotracheal Airway into Trachea, Via Natural or Artificial Opening (ICD-10-PCS; 2020-04-25)
PROC: 02HV33Z Insertion of Infusion Device into Superior Vena Cava, Percutaneous Approach (ICD-10-PCS; 2020-04-28)
PROC: B548ZZA Ultrasonography of Superior Vena Cava, Guidance (ICD-10-PCS; 2020-04-28)
PROC: 5A1D70Z Performance of Urinary Filtration, Intermittent, Less than 6 Hours Per Day (ICD-10-PCS; 2020-04-28)
PROC: 5A12012 Performance of Cardiac Output, Single, Manual (ICD-10-PCS; 2020-04-28)
PROC: 5A1D70Z Performance of Urinary Filtration, Intermittent, Less than 6 Hours Per Day (ICD-10-PCS; 2020-04-29)
DX: A41.9 Sepsis, unspecified organism (principal); N17.0 Acute kidney failure with tubular necrosis; E43 Unspecified severe protein-calorie malnutrition; E11.10 Type 2 diabetes mellitus with ketoacidosis without coma; D68.59 Other primary thrombophilia; E87.1 Hypo-osmolality and hyponatremia; I46.9 Cardiac arrest, cause unspecified; U07.1 COVID-19; J96.01 Acute respiratory failure with hypoxia; D64.9 Anemia, unspecified; E86.0 Dehydration; R65.21 Severe sepsis with septic shock; E87.5 Hyperkalemia; Z68.24 Body mass index [BMI] 24.0-24.9, adult; J12.82 Pneumonia due to coronavirus disease 2019; Z11.52 Encounter for screening for COVID-19
CPT/HCPCS: 36415; 36600; 71045; 71250; 76770; 78582; 80048; 80053; 80076; 80305; 81001; 82150; 82550; 82728; 82803; 82948; 83036; 83605; 83615; 83690; 83735; 83880; 84100; 84439; 84443; 84484; 85025; 85379; 85384; 85610; 85651; 85730; 86140; 86900; 86901; 87040; 87081; 87086; 87420; 87804; 92610; 92950; 93005; 93970; 94002; 94003; 96365; 96375; 99291; J0330; J0360; J0456; J0696; J1100; J1644; J1650; J1815; J2270; J2704; J3475; J3490; J7030; J7060; U0003